=== PATIENT | female | born 1980 | race Caucasian/White ===

== ENCOUNTER 2022-01-23 12:13 | Inpatient (IN) ==
[2022-01-23] MEDS ORDERED: diazePAM 5 MG TABLET PO ONE ×2 (15:23→22:09)
[2022-01-23 15:57] LABS: Basophils % 0.3 %; Eosinophils # 0.2 K/mcL (0.0-0.6); Eosinophils % 1.6 %; Hematocrit 44.9 % (35.3-44.9); Hemoglobin 14.6 g/dL (11.5-15.4); Immature Granulocytes % 0.5 % (0-4); Lymphocytes # 2.9 K/mcL (0.6-4.6); Mean Corpuscular HGB Conc 32.5 g/dL (31.6-35.5); Mean Corpuscular Hemoglobin 27.7 pg (28.0-33.3); Mean Corpuscular Volume 85.2 fL (83.0-100.0); Mean Platelet Volume 9.5 fL (9.4-12.4); Monocytes # 0.6 K/mcL (0.0-1.3); Monocytes % 4.8 %; Neutrophils # 8.2 K/mcL (1.6-8.9); Platelet Count 426 K/mcL (140-400); Red Blood Count 5.27 M/mcL (3.82-4.97); Red Cell Distribution Width 14.6 % (11.5-14.5); Segmented Neutrophils % 68.8 %
[2022-01-23 16:02] LABS: Bacteria,Urine Few per hpf (None-Few); Bilirubin,Urine Negative (Negative); Blood,Urine Trace (Negative); Clarity,Urine Turbid (Clear); Color,Urine Light-Yellow (Yellow); Glucose,Urine (UA) Normal (Normal); Ketones,Urine 10 mg/dL (Negative); Leukocyte Esterase,Urine Trace (Negative); Mucus,Urine Few per lpf (None-Few); Nitrite,Urine Negative (Negative); Protein,Urine Trace mg/dL (Neg-Trace); RBC,Urine 0-3 per hpf (0-3); Specific Gravity,Urine 1.015 (1.010-1.025); Squamous Epithelial Cell,Urine Moderate per hpf (None-Few); Urobilinogen,Urine Normal (Normal)
[2022-01-23 16:11] LABS: Amphetamine Screen,Urine Negative ng/mL (Cutoff=1000); Barbiturate Screen,Urine Negative ng/mL (Cutoff=200); Benzodiazepines Screen,Urine Positive ng/mL (Cutoff=200); Cannabinoid Screen,Urine Negative ng/mL (Cutoff = 50); Cocaine Screen,Urine Negative ng/mL (Cutoff= 300); Opiate Screen,Urine Negative ng/mL (Cutoff=300); Phencyclidine Screen,Urine Negative ng/mL (Cutoff=25)
[2022-01-23 16:17] LABS: Acetaminophen < 10 mcg/mL (10-20); BUN/Creatinine Ratio 18 (6-26); Blood Urea Nitrogen 16 mg/dL (6-20); Calcium 9.9 mg/dL (8.6-10.3); Carbon Dioxide 26 mEq/L (23-29); Chloride 103 mEq/L (98-107); Chol/HDL Ratio 4.5 (0-4.9); Cholesterol 179 mg/dL (< 200); Ethanol < 10 mg/dL (Less than 10); Glucose 86 mg/dL (70-105); HDL Cholesterol 40 mg/dL (40-59); LDL Cholesterol,Calculated 119 mg/dL (< 100); Osmolality,Calculated 286 (280-300); Potassium 3.5 mEq/L (3.5-5.1); Salicylate < 2.5 mg/dL (15.0-30.0); Sodium 138 mEq/L (136-145); Triglycerides 99 mg/dL (< 150); eGFR For African Americans > 60 (> 60); eGFR For Non-African Americans > 60 (> 60)
[2022-01-23] MEDS ORDERED: Nitrofurantoin (BID) 100 MG CAPSULE PO STA (17:02)
[2022-01-23 19:39] LABS: Estimated Average Glucose 100 mg/dl; Hemoglobin A1C 5.1 %
[2022-01-23 19:43] LABS: Influenza A PCR Negative (Negative); Influenza B PCR Negative (Negative); Resp. Syncytial Virus PCR Negative (Negative)
[2022-01-23 19:44] LABS: SARS-CoV-2 by PCR (In House) Negative (Negative)
[2022-01-23] MEDS ORDERED: traZODone 50 MG TABLET PO PRN (20:18)
[2022-01-23] MEDS ORDERED: MOM Conc 10 ML UD.LIQ PO PRN (20:18)
[2022-01-23] MEDS ORDERED: haloperidoL 5 MG TABLET PO PRN (20:18)
[2022-01-23] MEDS ORDERED: Haloperidol Lactate 5 MG/ML VIAL IM PRN (20:18)
[2022-01-23] MEDS ORDERED: hydrOXYzine pamoate 25 MG CAPSULE PO PRN (20:18)
[2022-01-23] MEDS ORDERED: diazePAM 5 MG TABLET PO PRN (20:37)
[2022-01-23] MEDS ORDERED: Gabapentin 300 MG CAPSULE PO ONE (22:10)
[2022-01-23] MEDS: PARoxetine 10 MG TABLET PO SCH (22:25)
[2022-01-24] MEDS: Nitrofurantoin (BID) 100 MG CAPSULE PO SCH ×2 (08:54→17:49)
[2022-01-24] MEDS: Vitamin B Complex/Vit C/Vit E 1 EACH TABLET PO SCH (08:55)
[2022-01-24] MEDS: diazePAM 5 MG TABLET PO SCH (21:08)
[2022-01-24] MEDS: PARoxetine 10 MG TABLET PO SCH (21:11)
[2022-01-25] MEDS ORDERED: modafiniL 100 MG TABLET PO SCH (08:00)
[2022-01-25] MEDS: Nitrofurantoin (BID) 100 MG CAPSULE PO SCH ×2 (08:52→17:42)
[2022-01-25] MEDS: Vitamin B Complex/Vit C/Vit E 1 EACH TABLET PO SCH (08:53)
[2022-01-25] MEDS: Loratadine 10 MG TABLET PO SCH (08:53)
[2022-01-25] MEDS: Acetaminophen 325 MG TABLET PO PRN (10:47)
[2022-01-25] MEDS ORDERED: Bisacodyl 10 MG RECTAL SUPPOSITORY RC ONE (19:52)
[2022-01-25] MEDS: diazePAM 5 MG TABLET PO SCH (21:34)
[2022-01-26] MEDS ORDERED: Bisacodyl 10 MG RECTAL SUPPOSITORY RC ONE (08:00)
[2022-01-26] MEDS: Nitrofurantoin (BID) 100 MG CAPSULE PO SCH ×2 (09:14→16:34)
[2022-01-26] MEDS: Vitamin B Complex/Vit C/Vit E 1 EACH TABLET PO SCH (09:14)
[2022-01-26] MEDS: Sennosides 8.6 MG TABLET PO SCH (09:14)
[2022-01-26] MEDS: modafiniL 100 MG TABLET PO SCH ×2 (09:16→12:38)
[2022-01-26] MEDS: Loratadine 10 MG TABLET PO SCH (09:16)
[2022-01-26] MEDS: diazePAM 5 MG TABLET PO SCH (21:34)
[2022-01-27] MEDS: Loratadine 10 MG TABLET PO SCH (08:26)
[2022-01-27] MEDS: Nitrofurantoin (BID) 100 MG CAPSULE PO SCH ×2 (08:26→16:28)
[2022-01-27] MEDS: modafiniL 100 MG TABLET PO SCH ×2 (08:26→11:32)
[2022-01-27] MEDS: Sennosides 8.6 MG TABLET PO SCH (08:26)
[2022-01-27] MEDS: Vitamin B Complex/Vit C/Vit E 1 EACH TABLET PO SCH (08:27)
[2022-01-27] MEDS: Fluconazole 100 MG TABLET PO SCH (11:32)
[2022-01-27] MEDS: diazePAM 5 MG TABLET PO SCH (20:57)
[2022-01-28] MEDS: Fluconazole 100 MG TABLET PO SCH (08:55)
[2022-01-28] MEDS: Loratadine 10 MG TABLET PO SCH (08:55)
[2022-01-28] MEDS: Vitamin B Complex/Vit C/Vit E 1 EACH TABLET PO SCH (08:55)
[2022-01-28] MEDS: Nitrofurantoin (BID) 100 MG CAPSULE PO SCH ×2 (08:56→18:04)
[2022-01-28] MEDS: Sennosides 8.6 MG TABLET PO SCH (08:56)
[2022-01-28] MEDS: modafiniL 100 MG TABLET PO SCH ×2 (08:57→12:37)
[2022-01-28] MEDS: Acetaminophen 325 MG TABLET PO PRN (20:32)
[2022-01-28] MEDS: diazePAM 5 MG TABLET PO SCH (21:23)
[2022-01-29 08:15] VITALS: TEMP 97.6
[2022-01-29] MEDS: Sennosides 8.6 MG TABLET PO SCH (08:43)
[2022-01-29] MEDS: Vitamin B Complex/Vit C/Vit E 1 EACH TABLET PO SCH (08:43)
[2022-01-29] MEDS: Fluconazole 100 MG TABLET PO SCH (08:43)
[2022-01-29] MEDS: Loratadine 10 MG TABLET PO SCH (08:44)
[2022-01-29] MEDS: modafiniL 100 MG TABLET PO SCH ×2 (08:44→12:46)
[2022-01-29 08:50] VITALS: BP 104/67; PULSE 64; O2SAT 99
== END 2022-01-29 13:15 | disposition home or self-care (01) | DRG 885 ==
LOC: EMEROOARM 12:13 → 1ANU 21:07
PROVIDERS: ADMIT Psychiatry & Neurology Forensic Psychiatry; ATTEND Psychiatry & Neurology Forensic Psychiatry